=== PATIENT | female | born 1975 | race Two or more races ===

== ENCOUNTER 2016-11-16 18:50 | Emergency (ER) | payer MEDICAID, OTHER ==
[~2016-11-16] VITALS: Ht 165.1 cm; Wt 73.5 kg
[2016-11-16] MEDS ORDERED: diphenhdrAMINE HCL 50 MG/1 ML VL ONE (19:09)
[2016-11-16] MEDS ORDERED: methylPREDNISolone SOD SUCC 125 MG/2 ML VL ONE (19:09)
[2016-11-16 19:10] VITALS: BP 132/70
[2016-11-16] MEDS ORDERED: SODIUM CHLORIDE 0.9% 1,000 ML IV ONE (19:20)
[2016-11-16] MEDS ORDERED: methylPREDNISolone SOD SUCC 125 MG/2 ML VL IV ONE (19:30)
[2016-11-16] MEDS ORDERED: diphenhdrAMINE HCL 50 MG/1 ML VL IV ONE (19:30)
== END 2016-11-16 21:34 | disposition home or self-care (01) ==
LOC: ER 18:54
DX: T78.40XA Allergy, unspecified, initial encounter (principal); X58.XXXA Exposure to other specified factors, initial encounter; Z88.6 Allergy status to analgesic agent
CPT/HCPCS: 96361; 96374; 96375; 99284; J1200; J2930; J7030

== ENCOUNTER 2016-11-17 12:22 | Emergency (ER) | payer MEDICAID ==
[~2016-11-17] VITALS: Ht 165.1 cm; Wt 73.5 kg
[2016-11-17 12:32] VITALS: BP 150/81
[2016-11-17] MEDS ORDERED: methylPREDNISolone SOD SUCC 125 MG/2 ML VL IM ONE (13:30)
[2016-11-17] MEDS ORDERED: diphenhdrAMINE HCL 50 MG/1 ML VL IM ONE (13:30)
== END 2016-11-17 14:02 | disposition home or self-care (01) ==
LOC: ER 12:22
DX: R21 Rash and other nonspecific skin eruption (principal); Z88.6 Allergy status to analgesic agent
CPT/HCPCS: 96372; 99284; J1200; J2930

== ENCOUNTER 2017-05-10 20:48 | Emergency (ER) | payer MEDICAID ==
[~2017-05-10] VITALS: Ht 165.1 cm; Wt 74.8 kg
[2017-05-10] MEDS ORDERED: methylPREDNISolone SOD SUCC 125 MG/2 ML VL IV ONE (21:00)
[2017-05-10] MEDS ORDERED: diphenhdrAMINE HCL 50 MG/1 ML VL IV ONE (21:00)
[2017-05-10] MEDS ORDERED: FAMOTIDINE (10MG/ML) 2ML VL IV ONE (22:15)
[2017-05-10] MEDS ORDERED: ALBUTEROL SULF 2.5 MG/0.5ML(0.5%) NEB SOLN NEB ONE (22:15)
[2017-05-10 22:29] VITALS: BP 140/80
== END 2017-05-11 00:15 | disposition home or self-care (01) ==
LOC: ER 20:50
DX: T78.40XA Allergy, unspecified, initial encounter (principal); L29.9 Pruritus, unspecified; R06.02 Shortness of breath; X58.XXXA Exposure to other specified factors, initial encounter
CPT/HCPCS: 94640; 96374; 96375; 99284; J1200; J2930; J3490